=== PATIENT | male | born 1975 | race Caucasian/White ===

== ENCOUNTER 2017-06-09 10:12 | Emergency (ER) | payer MEDICAID ==
[~2017-06-09] VITALS: Ht 185.4 cm; Wt 117.0 kg
[~2017-06-09 10:12] MED LIST: SUCR1TAB34 PO
[2017-06-09] MEDS ORDERED: meclizine 12.5mg tablet PO ONE (11:40)
[2017-06-09] MEDS ORDERED: MECL12.584 PO (13:01)
[2017-06-09 13:04] VITALS: BP 145/65
== END 2017-06-09 13:05 | disposition home or self-care (01) ==
LOC: ER 10:13
DX: E87.8 Other disorders of electrolyte and fluid balance, not elsewhere classified (principal); R42 Dizziness and giddiness; R07.9 Chest pain, unspecified; I10 Essential (primary) hypertension; G89.29 Other chronic pain
CPT/HCPCS: 93005; 99283; J8597

== ENCOUNTER 2019-04-19 01:23 | Emergency (ER) | payer BC, MEDICAID ==
[~2019-04-19] VITALS: Ht 185.4 cm; Wt 109.1 kg
[~2019-04-19 01:23] MED LIST changes: +MECL12.584 PO
[2019-04-19 01:55] LABS: BASOPHILS % (AUTO) 0.7 % (0-1); EOSINOPHILS # (AUTO) 0.1 X10'3 (0-0.9); EOSINOPHILS % (AUTO) 0.8 % (0-6); HEMATOCRIT 45.6 % (42.0-52.0); HEMOGLOBIN 15.7 g/dl (14.0-17.9); LYMPHOCYTES # (AUTO) 1.7 X10'3 (1.1-4.8); LYMPHOCYTES % (AUTO) 23.6 % (21-51); MEAN CORPUSCULAR HEMOGLOBIN 32.5 PG (27.0-31.0); MEAN CORPUSCULAR HGB CONC 34.5 g/dL (33.0-36.5); MEAN CORPUSCULAR VOLUME 94.4 FL (78-98); MEAN PLATELET VOLUME 6.6 FL (7.4-10.4); MONOCYTES # (AUTO) 0.8 X10'3 (0-0.9); MONOCYTES % (AUTO) 10.4 % (2-12); NEUTROPHILS # (AUTO) 4.8 X10'3 (1.8-7.7); NEUTROPHILS % (AUTO) 64.5 % (42-75); PLATELET COUNT 240 X10'3 (140-440); RED BLOOD COUNT 4.83 X10'6 (4.70-6.10); RED CELL DISTRIBUTION WIDTH 13.2 % (11.5-14.5); WHITE BLOOD COUNT 7.4 X10'3 (4.5-11.0)
[2019-04-19] MEDS ORDERED: proCHLORperazine 10 MG/2 ml inj IV ONE (02:05)
[2019-04-19] MEDS ORDERED: normal saline 1000ML IV soln IVB ONE (02:05)
[2019-04-19] MEDS ORDERED: pantoprazole 40 MG vial IV ONE (02:05)
[2019-04-19 02:09] LABS: ALANINE AMINOTRANSFERASE 29 U/L (12-78); ALBUMIN 3.9 G/DL (3.4-5.0); ALBUMIN/GLOBULIN RATIO 1.1 (1.1-1.5); ALKALINE PHOSPHATASE 76 IU/L (46-116); ANION GAP 8 (8-16); ASPARTATE AMINO TRANSFERASE 27 U/L (10-37); BILIRUBIN,TOTAL 0.2 MG/DL (0.1-1.0); BLOOD UREA NITROGEN 22 MG/DL (7-18); BUN/CREATININE RATIO 17.6 (5.4-32.0); CALCIUM 9.3 MG/DL (8.5-10.1); CHLORIDE 102 MMOL/L (99-107); CREATININE 1.25 MG/DL (0.60-1.10); GLUCOSE 125 MG/DL (70-104); SODIUM 139 MMOL/L (135-145); TOTAL PROTEIN 7.4 G/DL (6.4-8.2); eGFR 64 ML/MIN
[2019-04-19 02:11] LABS: POTASSIUM 4.6 MMOL/L (3.5-5.1)
[2019-04-19] MEDS: morphine 2 MG/ML inj. syringe IV PRN ×2 (02:11→02:31)
[2019-04-19] MEDS ORDERED: iohexol 300mg/ml 100ml inj. ONE (02:48)
[2019-04-19 04:32] VITALS: BP 153/86
== END 2019-04-19 04:34 | disposition home or self-care (01) ==
LOC: ER 01:23
DX: R10.11 Right upper quadrant pain (principal); R10.12 Left upper quadrant pain; E78.00 Pure hypercholesterolemia, unspecified; I10 Essential (primary) hypertension; K21.9 Gastro-esophageal reflux disease without esophagitis; G89.29 Other chronic pain; F10.99 Alcohol use, unspecified with unspecified alcohol-induced disorder; Z79.899 Other long term (current) drug therapy; Y90.9 Presence of alcohol in blood, level not specified
CPT/HCPCS: 36415; 74022; 74177; 80053; 85025; 96374; 96375; 99284; C9113; J0780; J2270; J7030; Q9967

== ENCOUNTER 2024-07-19 17:59 | Emergency (ER) | payer BC, MEDICAID ==
[~2024-07-19] VITALS: Ht 185.4 cm; Wt 100.0 kg
[~2024-07-19 17:59] MED LIST changes: +MECL-226 PO; -MECL12.584 PO
[2024-07-19 18:12] VITALS: BP 146/96; PULSE 78; TEMP 98.2; O2SAT 99
[2024-07-19 22:04] VITALS: RESP 18
[2024-07-19] MEDS: ketorolac trometh 15mg/ml vial 15 MG/ML ML IM ONE (22:04)
[2024-07-19] MEDS ORDERED: IBUP-1984 PO (22:51)
== END 2024-07-19 23:10 | disposition home or self-care (01) ==
LOC: ER 18:00
DX: M79.671 Pain in right foot (principal); M25.571 Pain in right ankle and joints of right foot; E78.00 Pure hypercholesterolemia, unspecified; I10 Essential (primary) hypertension; K21.9 Gastro-esophageal reflux disease without esophagitis; Z98.890 Other specified postprocedural states
CPT/HCPCS: 73630; 96372; 99283; J1885